=== PATIENT | female | born 1945 | race Hispanic/Latino ===

== ENCOUNTER 2018-11-18 14:06 | Inpatient (IN) | payer MEDICARE ==
[~2018-11-18] VITALS: Ht 157.5 cm; Wt 65.6 kg
--- NOTE | 2018-11-18 00:03 | NUR ---
[facility] team here to insert line Addendum: 11/19/18 at 0719 by Daija Maxwell RN 11/19/18
[~2018-11-18 14:06] MED LIST: ALENDRONATE SOD70 MG PO; GABAPENTIN300 MG PO; GENVOYA PO; HYZAAR 50-12.51 EACH PO; LASIX20 MG PO; METOPROLOL SUCC25 MG PO; NIFEDIPINE ER30 M1 PO; TOPROL XL25 MG PO
--- NOTE | 2018-11-18 15:30 | NUR ---
Daughter, Maddy, was notified of patient's arrival to the floor and PICC line placement. Patient is agreeable to PICC line placement.
[2018-11-18 15:39] VITALS: BP 125/67
[2018-11-18 15:43] VITALS: BP 144/65
[2018-11-18 17:06] LABS: BASOPHILS % 0.5 % (0.0-1.0); EOSINOPHILS # (AUTO) 0.2 (0.0-0.4); EOSINOPHILS % 5.6 % (0.0-6.0); HEMATOCRIT 35.9 % (34.2-44.1); HEMOGLOBIN 11.9 g/dL (12.0-16.0); LYMPHOCYTES # (AUTO) 1.5 (1.0-3.2); LYMPHOCYTES % 35.6 % (18.0-39.1); MEAN CORPUSCULAR HEMOGLOBIN 30.7 pg (28-32); MEAN CORPUSCULAR HGB CONC 33.1 g/dL (31-35); MEAN CORPUSCULAR VOLUME 92.5 fL (81-99); MONOCYTES # (AUTO) 0.3 (0.2-0.8); NEUTROPHILS # (AUTO) 2.1 (2.1-6.9); NEUTROPHILS % 50.3 % (38.7-80.0); PLATELET COUNT 101 x10e3/uL (140-360); RED BLOOD COUNT 3.88 x10e6/uL (3.6-5.1); RED CELL DISTRIBUTION WIDTH 13.5 % (11.7-14.4)
[2018-11-18 17:27] LABS: ALANINE AMINOTRANSFERASE 18 IU/L (0-55); ALBUMIN 3.7 g/dL (3.5-5.0); ALBUMIN/GLOBULIN RATIO 1.2 (0.8-2.0); ALKALINE PHOSPHATASE 68 IU/L (40-150); ANION GAP 7.2 mmol/L (8-16); BLOOD UREA NITROGEN 22 mg/dL (7-26); BUN/CREATININE RATIO 24 (6-25); CALCIUM 9.3 mg/dL (8.4-10.2); CARBON DIOXIDE 26 mmol/L (22-29); CHLORIDE 107 mmol/L (98-107); CREATININE, SERUM 0.91 mg/dL (0.57-1.11); EST GLOMERULAR FILTRATION RATE > 60 ML/MIN (60-); GLUCOSE 99 mg/dL (74-118); POTASSIUM 4.2 mmol/L (3.5-5.1); SODIUM 136 mmol/L (136-145)
--- NOTE | 2018-11-18 17:33 | NUR ---
Notified radiology that consent for PICC line has been signed.
[2018-11-18] MEDS ORDERED: HYDROXYZINE HCL10 MG PO (17:41)
[2018-11-18 17:45] LABS: ERYTHROCYTE SEDIMENTATION RATE 5 mm/hr (0-20)
[2018-11-18] MEDS ORDERED: GENVOYA PO (17:59)
[2018-11-18] MEDS ORDERED: HYDROCODONE/APAP 5MG-325MG TAB PO PRN (18:00)
[2018-11-18] MEDS ORDERED: ACETAMINOPHEN 325 MG TAB PO PRN (18:00)
[2018-11-18] MEDS ORDERED: TRAZODONE HCL 50 MG TAB PO PRN (18:00)
[2018-11-18] MEDS ORDERED: ONDANSETRON HCL INJ 2MG/ML 2ML 2 MG/ML VIAL IV PRN (18:00)
[2018-11-18] MEDS ORDERED: HYDROXYZINE HCL 10 MG TAB PO PRN (18:00)
[2018-11-18 18:16] VITALS: BP 144/65
--- NOTE | 2018-11-18 19:25 | NUR ---
Bedside report and walking rounds complete. Pt resting in bed and in no apparent distress. All safety measures ensured and pt call raya near. Pt encouraged to use call raya for assistance.
[2018-11-18 20:00] VITALS: BP 130/64
[2018-11-18] MEDS ORDERED: MEROPENEM 1GRAM 1 GM in SODIUM CHLORIDE 0.9% 100 ML 100 ML IV SCH (21:00)
--- NOTE | 2018-11-18 22:43 | Consultation ---
DATE OF CONSULTATION: REASON FOR CONSULTATION: 1. UTI, failed oral antibiotic. 2. Perirectal pain. 3. HIV. HISTORY OF PRESENT ILLNESS: This patient who is a 72-year-old Thai female, well known to me, who has history of HIV, but she is very compliant with her medication, she takes her medication, history of hepatitis C, which was treated, history of hemorrhoids, who had surgery for it. 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 The patient was doing well. She came into my office complaining that she has been having urgency, frequency, so we did urine cultures, we gave her Cipro, surprisingly it was sensitive to Cipro, but she did have urgency, frequency, severe back pain without any improvement, feeling feverish, so I feel maybe she has been on IV meropenem till we get further information. The patient also complained to me that she is having perirectal pain, which she had for sometime. She is also complained that she is having problem. The patient is admitted with the above complaint: 1. Urgency and frequency. 2. Perirectal pain. 3. Pain around the colostomy. PAST MEDICAL HISTORY: History of HIV and hepatitis C and as above. PAST SURGICAL HISTORY: Colectomy. ALLERGIES: NKA. SOCIAL HISTORY: There is no smoking, drug abuse, or alcohol abuse. FAMILY HISTORY: Otherwise noncontributory. REVIEW OF SYSTEMS: HEENT: There is no headache, visual changes, or hearing changes. GI: There is no nausea, no vomiting, no diarrhea. CARDIAC: There is no arrhythmia. NEURO: No seizure activity. SKIN: There is no rash. All other symptoms within normal limits except for what mentioned above. Laboratory data is still pending, but the patient is well-known to me to have history of chronic kidney disease from before, creatinine like 1.5 or something. PHYSICAL EXAMINATION: GENERAL: She is currently alert, oriented, does not seem to be in acute distress. VITAL SIGNS: Stable. Afebrile. HEENT: Normocephalic, not icteric. NECK: Supple. No JVD. No thyromegaly. CHEST: Clear bilateral. HEART: S1, S2. No S3, S4, or murmur. ABDOMEN: Soft. Bowel sounds present. No tenderness. No hepatosplenomegaly. EXTREMITIES: No edema. SKIN: No rash. IMPRESSION: 1. Urinary tract infection, failing oral antibiotic in spite of sensitivity pattern. We will recheck urine cultures. We will put her on meropenem. 2. Chronic kidney disease. Recheck CBC, chemistry panel, adjust antibiotic according to that. 3. History of HIV. Continue home medication. 4. History of hep C treatment. 5. Perirectal pain. We will consult GI. 6. Pain around the colostomy. We will consult Wound Care. We will follow up after the availability of the cultures and sensitivity. Further recommendations to follow. MD KODI Coronado/MICHEL /[id number]
--- NOTE | 2018-11-18 23:24 | Diagnostic Imaging Report ---
EXAMINATION: CHEST XRAY LINE PLACEMENT INDICATION: post PICC line insertion ^[id number] ^[id number] ^Y COMPARISON: None FINDINGS: TUBES and LINES: Right upper extremity PICC with distal tip projected on the level of the mid SVC. LUNGS: Lungs are well inflated. Lungs are clear. There is no evidence of pneumonia or pulmonary edema. PLEURA: No pleural effusion or pneumothorax. HEART AND MEDIASTINUM: The cardiomediastinal silhouette is unremarkable. BONES AND SOFT TISSUES: No acute osseous lesion. Soft tissues are unremarkable. UPPER ABDOMEN: No free air under the diaphragm. IMPRESSION: Right upper extremity PICC with distal tip projected on the level of the mid SVC. Signed by: Dr. Vlad Borges M.D. on 11/18/2018 11:21 PM
[2018-11-19] VITALS (7 sets, daily range): BP systolic 119–154; BP diastolic 59–71
--- NOTE | 2018-11-19 01:03 | History and Physical ---
CHIEF COMPLAINT: Dysuria, failed outpatient oral antibiotic therapy. HISTORY OF PRESENT ILLNESS: This is 72-year-old female with multiple comorbidities, of note history of hypotension and osteoporosis, who came in as a direct admission after failing outpatient oral antibiotic therapy for UTI. The patient has been on oral antibiotics for significant period of time and continues to complain of dysuria. At this time, the patient is being admitted for IV antibiotic therapy with Merrem. PICC line will be ordered. The patient denies any chest pain, palpitation, nausea, or vomiting. Denies any fever at home. She does complain of dysuria. The patient was evaluated at bedside, currently stable. Vital signs were stable during my evaluation. REVIEW OF SYSTEMS: Pertinent positives: Positive dysuria. Pertinent negatives: Denies any chest pain, palpitation, nausea, vomiting, diarrhea, hematuria, frequency, urgency, lightheadedness, dizziness, abdominal pain, headaches, shortness of breath, cough, congestion, fever, or any other complaints. The rest of 14-point review of systems are reviewed with the patient and are negative. ALLERGIES: NO KNOWN DRUG ALLERGIES. HOME MEDICATIONS: She takes alendronate 70 mg every the week, Genvoya, hydroxyzine 10 mg p.o. t.i.d. for itching, and metoprolol ER 25 mg daily. PAST MEDICAL HISTORY: Hypotension and osteoporosis. PAST SURGICAL HISTORY: Cholecystectomy in the past. SOCIAL HISTORY: The patient is , has 2 children. No illicit drugs, alcohol or any cigarettes. PHYSICAL EXAMINATION: VITAL SIGNS: Temperature 97.2, pulse 64, respirations 18, blood pressure 140/65, and pulse ox 99% on room air. GENERAL: No acute distress. Alert and oriented x3. Cooperative on examination. HEENT: Head is normocephalic and atraumatic. Eyes; pupils are equal, round, and reactive to light bilaterally. Extraocular movements are intact bilaterally. Throat, no evidence of erythema or exudates in the posterior pharynx. Has poor dentition. NECK: Supple. Good range of motion throughout. PULMONARY: Clear to auscultation bilaterally. No wheezing, no rales, no rhonchi, and no crackles appreciated. CARDIOVASCULAR: Positive S1 and S2. No murmurs, rubs, or gallops. ABDOMEN: Soft and nontender to palpation. Bowel sounds present. MUSCULOSKELETAL: Strength is 5/5 throughout. No evidence of any muscle deficits on examination. No weakness appreciated. NEUROLOGIC: Cranial nerves II through XII grossly intact. No evidence of any neurological deficits on exam. SKIN: Intact. Warm to touch. Good cap refill. PSYCHIATRIC: Normal affect and mood. EXTREMITIES: No edema. Good range of motion throughout. LAB FINDINGS: White count of 4.1, hemoglobin 11.9, hematocrit 35.9, and platelets 101. Chemistry; sodium 133, potassium 4.2, chloride 107, bicarb 26, anion gap is 7, BUN 20, creatinine 0.91, glucose 99, and calcium 9.3. Bilirubin 0.8, AST 24, ALT 18, alkaline phosphatase 68, total protein 6.9, and albumin 3.7. MICROBIOLOGY: None. IMAGING STUDIES: None. IMPRESSION: 1. Multidrug resistant urinary tract infection, failed outpatient oral antibiotic therapy. 2. Hypertension. 3. Osteoporosis. 4. Obesity. 5. The patient complains of epigastric abdominal pain. PLAN: At this time, start with IV antibiotics and Merrem per ID recommendations. PICC line will be ordered for an outpatient antibiotic therapy. The patient will go ahead and get GI consultation due to epigastric abdominal pain ongoing for the last several days to weeks. We are going to resume same home medications with no changes. Restart home medications. Hold Lovenox for DVT prophylaxis. Otherwise, continue same plan of care. Monitor very closely. ID and GI have been consulted. MD LUBNA Barboza/MICHEL /[id number]
[2018-11-19 02:37] LABS: BILIRUBIN,URINE NEGATIVE (NEGATIVE); CLARITY,URINE CLEAR (CLEAR); COLOR,URINE YELLOW (YELLOW); KETONES,URINE NEGATIVE (NEGATIVE); LEUKOCYTE ESTERASE ,URINE NEGATIVE (NEGATIVE); NITRITE,URINE NEGATIVE (NEGATIVE); PROTEIN,URINE DIPSTICK NEGATIVE (NEGATIVE); URINE UROBILINOGEN 0.2 mg/dL (0.2 - 1)
[2018-11-19 02:49] LABS: BACTERIA,URINE RARE /HPF; RBC,URINE 0-5 /HPF (0-5); WBC,URINE (MAN) 0-5 /HPF (0-5)
[2018-11-19 02:50] LABS: EPITHELIAL CELLS,URINE RARE /LPF
[2018-11-19] MEDS: MEROPENEM 1GM 100 ML IV SCH ×2 (05:00→16:30)
[2018-11-19] MEDS ORDERED: SODIUM CHLORIDE 0.9% 250ML 250 ML ONE (05:05)
[2018-11-19 06:03] LABS: BASOPHILS % 0.4 % (0.0-1.0); EOSINOPHILS # (AUTO) 0.3 (0.0-0.4); EOSINOPHILS % 4.6 % (0.0-6.0); HEMATOCRIT 38.2 % (34.2-44.1); HEMOGLOBIN 13.1 g/dL (12.0-16.0); LYMPHOCYTES # (AUTO) 1.8 (1.0-3.2); LYMPHOCYTES % 33.6 % (18.0-39.1); MEAN CORPUSCULAR HEMOGLOBIN 30.9 pg (28-32); MEAN CORPUSCULAR HGB CONC 34.3 g/dL (31-35); MEAN CORPUSCULAR VOLUME 90.1 fL (81-99); MONOCYTES # (AUTO) 0.5 (0.2-0.8); MONOCYTES % 8.8 % (4.4-11.3); NEUTROPHILS # (AUTO) 2.9 (2.1-6.9); NEUTROPHILS % 52.4 % (38.7-80.0); PLATELET COUNT 115 x10e3/uL (140-360); RED BLOOD COUNT 4.24 x10e6/uL (3.6-5.1); RED CELL DISTRIBUTION WIDTH 13.3 % (11.7-14.4)
[2018-11-19 06:29] LABS: ANION GAP 8.9 mmol/L (8-16); BLOOD UREA NITROGEN 22 mg/dL (7-26); BUN/CREATININE RATIO 27 (6-25); CALCIUM 9.2 mg/dL (8.4-10.2); CARBON DIOXIDE 25 mmol/L (22-29); CHLORIDE 105 mmol/L (98-107); CREATININE, SERUM 0.81 mg/dL (0.57-1.11); EST GLOMERULAR FILTRATION RATE > 60 ML/MIN (60-); GLUCOSE 91 mg/dL (74-118); POTASSIUM 3.9 mmol/L (3.5-5.1); SODIUM 135 mmol/L (136-145)
--- NOTE | 2018-11-19 08:05 | Consultation ---
DATE OF CONSULTATION: 11/18/2018 GI consultation REASON FOR CONSULT: GI consult for chronic hepatitis C. HISTORY OF PRESENTING ILLNESS: A 72-year-old very pleasant female. She speaks Georgian only. Most of my information is derived through interaction with the nurse and reviewing the chart. She got admitted with recurrent episodes of urinary tract infection. She was getting intravenous antibiotic at home. She has admitted in the hospital to get a PICC line for IV antibiotic. She is getting antibiotic therapy under supervision of Infectious Disease physician, Dr. Rosenthal. She has a documented history of hepatitis C as well as HIV. It is not clear whether the patient ever received treatment for HIV. So, she is here to get the PICC line. The patient also has a colostomy. It is not clear what is the reason for colostomy. The patient is also not able to tell me the detailed history about this. She otherwise reports no abdominal pain. Tolerating oral diet. Colostomy bag is full of semi solid brown stool. REVIEW OF SYSTEMS: As per HPI. PAST MEDICAL HISTORY: Hypertension, chronic hepatitis C, HIV, foot injury. PAST SURGICAL HISTORY: Cholecystectomy, right colostomy. FAMILY HISTORY: Noncontributory. SOCIAL HISTORY: No smoking, alcohol, or any illicit drug use. ALLERGIES: NO KNOWN DRUG ALLERGIES. HOME MEDICATIONS: Alendronate, hydroxyzine, metoprolol, Genvoya. INPATIENT MEDICATIONS: List reviewed as per MAR. She is also on intravenous meropenem. PHYSICAL EXAMINATION: VITAL SIGNS: Temperature 97.2, pulse 64, respirations 18, blood pressure 144/65, oxygen saturation 99% on 2 L of nasal cannula. GENERAL: Not in any acute distress. HEENT: Oral mucosa is moist. Anicteric sclerae. CVS: S1 and S2 regular. LUNGS: Bilaterally grossly clear. ABDOMEN: Soft, nondistended, nontender. No palpable mass or hernia, right colostomy with soft brown stool. No mass or hernia. Positive bowel sounds. LABORATORY DATA: WBC 4.10, hemoglobin 11.9, hematocrit 35.9, MCV 92.5, and platelet count 101. Sodium 136, potassium 4.2, chloride 107, bicarb 26, BUN 22, creatinine 0.91. Liver enzymes normal. No imaging studies done here. IMPRESSION: 1. Chronic hepatitis C, it is not clear whether the patient ever received treatment. 2. Thrombocytopenia, this is indicative of possible underlying portal hypertension from liver cirrhosis. 3. Right colostomy, reason unclear, detailed history is not available. PLAN: From GI standpoint, continue the present medical management for urinary tract infection. The patient is most hepatitis C treatment needs to be done as an outpatient. I will continue to follow her clinically. I thank Dr. Rosenthal for allowing me to participate in the care of this patient. Olu Bentley MD SA/MICHEL /[id number]
[2018-11-19] MEDS ORDERED: METOPROLOL SUCCINATE 25 MG TAB XL PO SCH (09:00)
[2018-11-19] MEDS: METOPROLOL SUCCINATE 50 MG TAB XL PO SCH (09:11)
[2018-11-19] MEDS: GENVOYA PO SCH (09:12)
--- NOTE | 2018-11-19 14:55 | NUR ---
WOUND CARE CONSULTATION: THIS IS A 72 YEAR OLD PATIENT ADMITTED TO [facility] FOR UTI. PATIENT HAS A HISTORY OF HIV, HEPATITIS C, AND PAST SURGICAL HISTORY OF COLECTOMY. HEAD TO TOE SKIN ASSESSMENT PERFORMED. PATIENT HAS NO OPEN WOUNDS UPON ASSESSMENT. PATIENT DOES HAVE A RLQ COLOSTOMY, APPLIANCE INTACT, FIT TO STOMA SIZE, STOMA IS PINK WITH NO IRRITATION NOTED. 150CC OF LIGHT BROWN, STOOL NOTED IN OUTPUT OF COLOSTOMY POUCH. HAND OUTS WERE GIVEN TO PATIENT AND TEACHING WAS PROVIDED REGARDING COLOSTOMY CARE, SKIN CARE, AND STOMA EXPECTATIONS AND CARE OF STOMA. PATIENT VERBALIZED THAT SHE UNDERSTANDS TEACHING AND THAT SHE DOES NOT HAVE ANY QUESTIONS REGARDING COLOSTOMY CARE AT THIS TIME. PATIENT HAS BEEN CHANGING AND EMPTYING HER COLOSTOMY FOR OVER A YEAR. SHE HAS SUPPLIES DELIVERED MONTHLY AND HAS PLENTY OF APPLIANCES FOR HER COLOSTOMY CHANGES AT HOME. LABS: WBC5.44 [id number] ALBUMIN3.7 URINE CULTURE PENDING. MEDICATIONS: MEROPENEM RECOMMENDATION: -APPLY ALTERNATING PRESSURE RELIEF MATTRESS. -APPLY BILATERAL HEEL PROTECTORS WITH PILLOW SUSPENSION. -REMIND PATIENT TO TURN EVERY 2 HOURS AND PRN. -RECONSULT WOUND CARE DEPARTMENT IF ANY FURTHER QUESTIONS OR CONCERNS ABOUT COLOSTOMY CARE. THANK YOU FOR THIS WOUND CARE CONSULT. Addendum: 11/19/18 at 1511 by Deja Hernandez RN Amended: Links added.
--- NOTE | 2018-11-19 15:46 | Progress Note ---
DATE: 11/19/2018 SUBJECTIVE: The patient is currently doing well with no complaints. She does have currently a PICC line. She is on IV Merrem. Process is for us to get her home on IV antibiotics. She otherwise have no complaints overnight. LABORATORY DATA: Lab findings show white count is 5.4, hemoglobin 13, hematocrit is 38, platelets 150. Chemistry; sodium 135, potassium 3.9, chloride 105, bicarb 25, anion gap is 8.9, BUN 22, creatinine 0.81, glucose 91, calcium 9.2. Urinalysis was negative. MICROBIOLOGY: Urine cultures pending. IMAGING STUDIES: None. PHYSICAL EXAMINATION: VITAL SIGNS: Temperature is 96.9, pulse 71, respiratory rate is 18, blood pressure 132/62, pulse ox 99% on room air. GENERAL: Not in acute distress. Alert and oriented x3. Cooperative on examination. HEENT: Head, normocephalic and atraumatic. Eyes, pupils are equal, round, and reactive to light bilaterally. Extraocular movements are intact bilaterally. Throat, no evidence of any erythema or exudates in the posterior pharynx. Has poor dentition. NECK: Supple. Good range of motion. PULMONARY: Clear to auscultation bilaterally. No wheezing, rales, or rhonchi. No crackles appreciated. CARDIOVASCULAR: Positive S1 and S2. No murmurs, rubs, or gallops appreciated. ABDOMEN: Soft, nondistended, and nontender to palpation. Bowel sounds are present. MUSCULOSKELETAL: Strength is 5/5 throughout. No evidence of any muscle deficits on examination. No weakness appreciated. NEUROLOGIC: Cranial nerves II through XII grossly intact. No evidence of any neurological deficits on exam. SKIN: Intact. Warm to touch. Good cap refill. PSYCHIATRIC: Normal affect and mood. EXTREMITIES: No edema. Good range of motion throughout. IMPRESSION: 1. Multidrug-resistant urinary tract infection, failed outpatient antibiotic therapy, now on IV Merrem. 2. Hypertension. 3. Osteoporosis. 4. Obesity. 5. Epigastric abdominal pain. PLAN: Continue with IV Merrem. PICC line has been placed. Arrange IV antibiotics as an outpatient. Blood pressure is stable. Continue same home medications. GI evaluated the patient. No further workup needed. Just medical management at this time. She does have a PICC line . Continue with same plan of care. MD LUBNA Barboza/MICHEL /[id number]
[2018-11-19] MEDS: ENOXAPARIN SOD INJ 40 MG/0.4 ML SYR SC SCH (16:30)
--- NOTE | 2018-11-19 19:06 | NUR ---
received patient aaox3, resting in bed. no needs voiced. bed locked and in lowest position, call light within easy reach. will continue to monitor patient.
--- NOTE | 2018-11-19 22:53 | Progress Note ---
DATE: 11/19/2018 GI Progress Report. SUBJECTIVE: The patient reports no abdominal pain, tolerating oral diet. She got a PICC line placed today. REVIEW OF SYSTEMS: GENERAL: No fever or chills. CVS: No chest pain or palpitation. RESPIRATORY: No cough or expectoration. MEDICATIONS: Reviewed as per AUG. The patient is getting intravenous meropenem along with other medications. PHYSICAL EXAMINATION: VITAL SIGNS: Temperature 96.8, pulse 66, respirations 20, blood pressure 150/65, oxygen saturation 99% on room air. GENERAL: Not in any acute distress. HEENT: Oral mucosa is moist. Anicteric sclerae. CVS: S1, S2. Regular. LUNGS: Bilaterally grossly clear. ABDOMEN: Soft, nondistended, nontender. No palpable mass or hernia. Right colostomy bag with soft brown stool. Bowel sounds present. EXTREMITIES: Warm. No leg edema. PICC line in the right upper arm. LABORATORY DATA: WBC 5.44, hemoglobin 13.1, hematocrit 38.2, platelet count 115. Sodium 135, potassium 3.9, chloride 105, bicarb 25, BUN 22, creatinine 0.81, glucose 91. Chest x-ray showed right upper extremity PICC with distal tip projected on the level of mid SVC. IMPRESSION: 1. Chronic hepatitis C. 2. Thrombocytopenia, indicative of underlying portal hypertension from cirrhosis. PLAN: Continue present medical management for urinary tract infection. I have given the patient my business card. She has been instructed to follow up in my office within one week for the treatment of hepatitis and outpatient management of any underlying liver cirrhosis. Olu Bentley MD SA/MICHEL /[id number] MTDD
[2018-11-20] VITALS (9 sets, daily range): BP systolic 118–142; BP diastolic 63–79
[2018-11-20] MEDS: MEROPENEM 1GM 100 ML IV SCH ×2 (04:55→17:07)
--- NOTE | 2018-11-20 07:00 | NUR ---
BEDSIDE SHIFT REPORT RECEIVED FROM NAILER OPERATOR RN. PT DENIES NEEDS AT THIS TIME.
[2018-11-20] MEDS: METOPROLOL SUCCINATE 50 MG TAB XL PO SCH (08:52)
[2018-11-20] MEDS: GENVOYA PO SCH (08:56)
--- NOTE | 2018-11-20 10:35 | NUR ---
EDUCATED ABOUT IMM, SIGNED, FILED IN CHART, WITH COPY LEFT WITH FAMILY AT BEDSIDE.
--- NOTE | 2018-11-20 12:22 | Progress Note ---
DATE: 11/20/2018 GI Progress Report SUBJECTIVE: The patient reports no abdominal pain. Tolerating oral feeds. Bilious liquidy stool in the colostomy bag. She got PICC line in the right arm yesterday. REVIEW OF SYSTEMS: GENERAL: No fever or chills. CVS: No chest pain or palpitation. RESPIRATORY: No cough or expectoration. MEDICATIONS: Reviewed as per MAR, she is getting meropenem along with other medication. PHYSICAL EXAMINATION: VITAL SIGNS: Temperature 97.2, pulse 68, respirations 20, blood pressure 129/67, and oxygen saturation 98% on room air. GENERAL: Not in any acute distress. HEENT: Oral mucosa is moist. Anicteric sclerae. ABDOMEN: Soft, nondistended, and nontender. No palpable mass or hernia. Positive bowel sounds. Colostomy bag with a bilious greenish fecal fluid. LABORATORY DATA: No lab drawn today. Lab drawn yesterday showed normal electrolytes. Liver enzymes tested on 11/18/2018 was normal. On 11/19/2018, hemoglobin 13.1, hematocrit 38.2, normal WBC, and platelet count is 115. IMPRESSION: 1. Chronic hepatitis C, needs confirmation for active infection. 2. Thrombocytopenia, indicative of probable underlying portal hypertension from liver cirrhosis. PLAN: Continue present medical management for urinary tract infection. Management of hepatitis C, liver cirrhosis as an outpatient. The patient has my business card. She will call my office to set up an appointment to see me within 1 to 2 weeks after discharge. Olu Bentley MD SA/MICHEL /[id number]
--- NOTE | 2018-11-20 16:55 | NUR ---
CALLED DR IVAN OFFICE REGARDING HOME HEALTH IV ANTIBIOTICS PER CASE MANAGEMENT.
[2018-11-20] MEDS ORDERED: ONDANSETRON HCL 4 MG ORAL DISINTEGRATING TAB PO PRN (17:00)
[2018-11-20] MEDS: ENOXAPARIN SOD INJ 40 MG/0.4 ML SYR SC SCH (17:07)
--- NOTE | 2018-11-20 17:48 | Progress Note ---
DATE: 11/20/2018 Medicine Progress Note SUBJECTIVE: The patient is doing well today with no other complaints. Still pending IV antibiotics for home. OBJECTIVE: VITAL SIGNS: Temperature is 98.5, pulse 63, respiratory rate 20, blood pressure 142/76, and pulse ox 98% on room air. GENERAL: Not in acute distress. Alert and oriented x3. Cooperative on examination. HEENT: Head is normocephalic and atraumatic. Eyes; pupils are equal, round, and reactive to light bilaterally. Extraocular movements are intact bilaterally. NECK: Supple. Good range of motion. THROAT: No evidence of erythema or exudates in the posterior pharynx. Has poor dentition. PULMONARY: Clear to auscultation bilaterally. No wheezing, rales, or rhonchi. No crackles appreciated. CARDIOVASCULAR: Positive S1, S2. No murmurs, rubs, or gallops appreciated. ABDOMEN: Soft, nondistended, and nontender to palpation. Bowel sounds present. MUSCULOSKELETAL: Strength is 5/5 throughout. No evidence any muscle deficits on examination. NEUROLOGIC: Cranial nerves II through XII grossly intact. No evidence of any neurological deficits on exam. SKIN: Intact. Warm to touch. Good cap refill. PSYCHIATRIC: Normal affect and mood. EXTREMITIES: No edema. Good range of motion throughout. LABORATORY DATA: White count of 5.5, hemoglobin 13, hematocrit 38, and platelets of 115. Chemistry, sodium 135, potassium 3.9, chloride 105, bicarb 25, anion gap of 8.9, BUN 22, and creatinine 0.81. Calcium 9.2. Troponins are all negative. IMPRESSION: 1. Multidrug resistant urinary tract infection, failed outpatient antibiotic therapy on IV Merrem. 2. Hypertension. 3. Osteoporosis. 4. Diabetes. 5. Epigastric abdominal pain, resolved. PLAN: Continue with IV Merrem. PICC line has been placed. Arranging for IV antibiotic outpatient. Pending home health and home IV antibiotics arrangement. Otherwise, continue same plan of care. Discussed plan of care with the son at bedside. MD LUBNA Barboza/MODL /[id number]
--- NOTE | 2018-11-20 19:00 | NUR ---
BEDSIDE SHIFT REPORT GIVEN TO THE MGMT SPECIALIST RN. PT DENIED FURTHER NEEDS.
--- NOTE | 2018-11-20 19:09 | NUR ---
received patient aaox3, resting in bed. stable condition, no s/s of distress observed, no needs voiced at this time. bed locked and in lowest position, call light within easy reach. instructed to call for assistance as needed, patient verbalized understanding. will continue to monitor patient.
[2018-11-21] MEDS: MEROPENEM 1GM 100 ML IV SCH ×2 (05:10→16:37)
[2018-11-21 05:57] VITALS: BP 134/71
--- NOTE | 2018-11-21 07:00 | NUR ---
BEDSIDE SHIFT RECEIVED FROM PRIMARY SCHOOL TEACHER LIBRARIAN RN. PT DENIES NEEDS AT THIS TIME.
[2018-11-21 08:55] VITALS: BP 153/70
[2018-11-21] MEDS: GENVOYA PO SCH (09:00)
[2018-11-21] MEDS: METOPROLOL SUCCINATE 50 MG TAB XL PO SCH (09:05)
[2018-11-21 09:15] VITALS: BP 153/70
[2018-11-21 11:48] VITALS: BP 124/61
[2018-11-21] MEDS: ENOXAPARIN SOD INJ 40 MG/0.4 ML SYR SC SCH (16:37)
[2018-11-21] MEDS ORDERED: KEFLEX500 MG PO (16:49)
[2018-11-21 17:30] VITALS: BP 138/63
--- NOTE | 2018-11-21 18:00 | NUR ---
PICC LINE REMOVED PER THE ORDER FROM DR. SHIN. NO SIGNS OF BLEEDING NOTED. PT TOLERATED WELL. PT DENIED FURTHER NEEDS.
--- NOTE | 2018-11-21 19:00 | NUR ---
PT DISCHARGED SAFELY HOME WITH FAMILY. PT DENIED FURTHER NEEDS.
--- NOTE | 2018-11-22 06:26 | Discharge Summary ---
FINAL DISCHARGE DIAGNOSES: 1. Urinary tract infection with underlying dysuria. 2. Abdominal pain, resolved. 3. Hypertension. 4. Osteoporosis. 5. Type 2 diabetes. CONSULTANTS: ID and GI. PHYSICAL EXAMINATION: VITAL SIGNS: Temperature is 97.4, pulse 64, respirations 17, blood pressure 124/61, and pulse ox 98% on room air. LAB FINDINGS: Show white count 5.4, hemoglobin 13, hematocrit of 38, platelets of 115. Chemistry, sodium 135, potassium 3.9, chloride 105, bicarb 25, anion gap of 8.9, BUN 22, creatinine 0.8, and calcium is 9.2. LFTs were normal. Troponins were negative. Total protein 6.8, albumin 3.7. Urinalysis negative. Microbiology, urine cultures negative. IMAGING STUDIES: None. HOSPITAL COURSE: A 72-year-old female with known HIV, had a positive UTI in the clinic, in which she failed outpatient oral antibiotic therapy. The patient was admitted. ID was consulted. We recommended initially IV PICC line, which was placed and IV Merrem, antibiotics. Initially, the patient was going to be discharged with IV Merrem, antibiotics as an outpatient. After further discussion with Infectious Disease, he recommended pulling the PICC line now, the patient now is currently asymptomatic and discharged on oral Keflex 500 mg p.o. Friday, Friday, Friday, and follow up next week in his office for further management and care. The patient is afebrile. White count is normal. In relation to her abdominal pain, GI was consulted. No further workup was needed and advised her to follow up as an outpatient. On discharge, the patient was cleared for discharge by all consultants. On the day of discharge, vital signs stable, labs being stable. The patient was seen, evaluated, examined thoroughly on the day of discharge. No other complaints. The patient verbalized understanding and agreed to plan of care. Follow up accordingly as an outpatient with the primary care physician in one week and Infectious Disease next week, and GI in 1-2 weeks' time. MEDICATIONS: See med reconciliation form. DISPOSITION: Home. CONDITION: Stable. DIET: Heart healthy. In the event of any worsening symptoms, the patient was advised to come back to the ED for further evaluation. Discharge summary took greater than 35 minutes. MD LUBNA Barboza/MICHEL /[id number]
== END 2018-11-21 19:23 | disposition home or self-care (01) | DRG 690 ==
LOC: MED/SURG2 15:01
PROVIDERS: ADMIT Internal Medicine; ATTEND Internal Medicine
PROC: 02HV33Z Insertion of Infusion Device into Superior Vena Cava, Percutaneous Approach (ICD-10-PCS; principal; 2018-11-18)
DX: N39.0 Urinary tract infection, site not specified (principal); B20 Human immunodeficiency virus [HIV] disease; K76.6 Portal hypertension; M81.0 Age-related osteoporosis without current pathological fracture; E11.9 Type 2 diabetes mellitus without complications; I10 Essential (primary) hypertension; E66.9 Obesity, unspecified; Z68.26 Body mass index [BMI] 26.0-26.9, adult; D69.59 Other secondary thrombocytopenia; K74.60 Unspecified cirrhosis of liver; Z16.24 Resistance to multiple antibiotics; B18.2 Chronic viral hepatitis C; R10.13 Epigastric pain; R35.0 Frequency of micturition
CPT/HCPCS: 36415; 36569; 71045; 80048; 80053; 81001; 84484; 85025; 85651; 86141; 87086; J1650; J3410; J7050

== ENCOUNTER 2019-02-01 17:48 | Inpatient (IN) | payer MEDICARE ==
[~2019-02-01] VITALS: Ht 157.5 cm; Wt 63.5 kg
[~2019-02-01 17:48] MED LIST changes: +HYDROXYZINE HCL10 MG PO; +KEFLEX500 MG PO
[2019-02-01] MEDS ORDERED: ONDANSETRON HCL INJ 2MG/ML 2ML 2 MG/ML VIAL IV STA (18:08)
[2019-02-01] MEDS ORDERED: SODIUM CHLORIDE 0.9% 1000ML 1,000 ML IV STA (18:08)
[2019-02-01] MEDS ORDERED: MORPHINE SULFATE 2 MG/ML SYR 1ML IV STA (18:08)
[2019-02-01 18:24] LABS: BILIRUBIN,URINE NEGATIVE (NEGATIVE); CLARITY,URINE SL CLOUDY (CLEAR); COLOR,URINE YELLOW (YELLOW); KETONES,URINE NEGATIVE (NEGATIVE); LEUKOCYTE ESTERASE ,URINE TRACE (NEGATIVE); NITRITE,URINE NEGATIVE (NEGATIVE); PROTEIN,URINE DIPSTICK NEGATIVE (NEGATIVE); URINE UROBILINOGEN 0.2 mg/dL (0.2 - 1)
[2019-02-01 18:36] LABS: BACTERIA,URINE FEW /HPF; EPITHELIAL CELLS,URINE MODERATE /LPF; RBC,URINE 0-5 /HPF (0-5)
[2019-02-01 18:52] LABS: BASOPHILS % 0.4 % (0.0-1.0); EOSINOPHILS # (AUTO) 0.1 (0.0-0.4); EOSINOPHILS % 2.9 % (0.0-6.0); HEMATOCRIT 38.3 % (34.2-44.1); HEMOGLOBIN 13.2 g/dL (12.0-16.0); LYMPHOCYTES # (AUTO) 1.5 (1.0-3.2); LYMPHOCYTES % 33.3 % (18.0-39.1); MEAN CORPUSCULAR HEMOGLOBIN 30.6 pg (28-32); MEAN CORPUSCULAR HGB CONC 34.5 g/dL (31-35); MEAN CORPUSCULAR VOLUME 88.9 fL (81-99); MONOCYTES # (AUTO) 0.4 (0.2-0.8); MONOCYTES % 8.1 % (4.4-11.3); NEUTROPHILS # (AUTO) 2.5 (2.1-6.9); NEUTROPHILS % 55.1 % (38.7-80.0); PLATELET COUNT 101 x10e3/uL (140-360); RED BLOOD COUNT 4.31 x10e6/uL (3.6-5.1); RED CELL DISTRIBUTION WIDTH 13.4 % (11.7-14.4)
[2019-02-01 19:12] LABS: ALBUMIN 4.2 g/dL (3.5-5.0); ALBUMIN/GLOBULIN RATIO 1.3 (0.8-2.0); ANION GAP 16.1 mmol/L (8-16); CALCIUM 9.7 mg/dL (8.4-10.2); CREATININE, SERUM 1.1 mg/dL (0.57-1.11); POTASSIUM 4.1 mmol/L (3.5-5.1)
--- NOTE | 2019-02-01 21:05 | Diagnostic Imaging Report ---
ADDENDUM #1 Dr. Up was informed of the preliminary findings of small bowel obstruction at approximately 2050 hours. Signed by: Dr. Georgie Bello MD on 02/01/2019 9:[address] Abdomen And Pelvis with Intravenous Contrast INDICATION: ^right abd pain/ with PO contrast as well TECHNIQUE: Thin collimation axial images obtained from the diaphragm to the level of the pubic symphysis following the uneventful administration of 100 cc of low osmolar, nonionic intravenous contrast. Dose reduction techniques used: Automated exposure control, adjustment of the mAs and/or kVp according to patient size, standardized low-dose protocol, and/or iterative reconstruction technique. RADIATION DOSE: Total DLP: 405.39 mGy*cm Estimated effective dose: (DLP x 0.015 x size factor) mSv CTDIvol has been reviewed. It is below the limits set by the Radiation Protocol Committee (RPC). COMPARISON: CT abdomen/pelvis 11/15/2017. ABDOMEN FINDINGS: Lung Bases: Bibasilar atelectasis. The heart is mildly enlarged. No pericardial effusion. Trace pleural effusion. Liver: Steatosis. Low attenuating lesion in the left lobe measures 10 mm and is stable suggestive of a cyst. Gallbladder: Absent. Biliary tree: Mild intrahepatic and extra hepatic biliary ductal dilatation. The common bile duct measures 12 mm in diameter. There is a large periampullary duodenal diverticulum measuring 3 cm. No evidence of choledocholithiasis. Pancreas: Mild fatty atrophy. No mass or ductal dilatation. Spleen: Normal in size. No evidence of mass.. Adrenal Glands: No evidence for mass. Kidneys: Right: Cortical scarring. No soft tissue mass. No hydronephrosis. Left: Cortical scarring. No soft tissue mass. No hydronephrosis. Lymph Nodes: No enlarged abdominal or retroperitoneal lymph nodes.. Aorta: Normal in diameter with scattered calcifications PELVIS FINDINGS: Bowel: Stomach: Contains enteric contrast and appears normal. Small Bowel: Multiple dilated small bowel loops in the right hemiabdomen. Intraperitoneal small bowel loops measure up to 3 cm and contains fluid and air. There are dilated small bowel loops in a parastomal hernia that measure up to 3.5 cm and contains fluid. There is normal mural enhancement. Distal to this hernia, small bowel loops are collapsed. Large Bowel: A subtotal colectomy has been performed. There is a right lower quadrant ostomy containing small bowel as described above. There is no fluid in the hernia sac. Bladder: Normal. The uterus is atrophic. No adnexal mass. Peritoneum/retroperitoneal: No free fluid or fluid collection. No free air. Soft tissues: Midline ventral abdominal wall hernia contains multiple small bowel loops and fat. The small bowel loops are distended with air measuring up to 2.4 cm. There is no evidence of fluid. No transition point is identified in this region. The hernia aperture is 6.2 cm. Bones: Mild height loss of the T12 vertebral body is stable. Remainder of the vertebral body heights are symmetric. IMPRESSION: 1. Status post subtotal colectomy. There is a high-grade partial small bowel obstruction involving the loops in the parastomal hernia. No evidence of bowel perforation. 2. Fat and small bowel containing umbilical hernia is new with distended small bowel loops that do not appear obstructed. 3. Status post cholecystectomy. Diffuse biliary ductal dilatation may be secondary to reservoir effect as well as the presence of a large periampullary duodenal diverticulum. Signed by: Dr. Georgie Bello MD on 02/01/2019 9:01 PM
--- NOTE | 2019-02-01 21:15 | NUR ---
PT HAD EPISODE OF EMESIS, APPROX 200 CC NOTED; INFORMED DR. MARRERO.
--- NOTE | 2019-02-01 21:38 | NUR ---
PT HAD ANOTHER ROUND OF EMESIS, APPROX 400 CC NOTED, INFORMED DR. MARRERO; REQUESTING NGT INSERTION.
[2019-02-01] MEDS ORDERED: BENZOCAINE/TETRACAINE/BUTAMBEN AERO SPRAY 56 GM CAN TOP ONE (22:00)
--- NOTE | 2019-02-01 22:10 | NUR ---
PT WENT INTO CARDIAC ARRYTHMIA, INTERMITTENT A FIB IN THE 90'S. OBTAINED STAT EKG AND INFORMED DR. MARRERO, CARDIO CONSULT OBTAINED TO DR. MICHAEL AND ORDERS FOR CARDIAC MARKERS, ECHO, AND TELE PLACED FOR PT.
[2019-02-01] MEDS ORDERED: IOPAMIDOL 370 MG/ML 200 ML INFUS..BTL INJ ONE (22:13)
[2019-02-01] MEDS ORDERED: SODIUM CHLORIDE 0.9% 50ML 50 ML ONE (22:13)
[2019-02-01] MEDS ORDERED: ASPIRIN 81 MG CHEW TAB PO ONE ×2 (22:30)
--- NOTE | 2019-02-01 23:00 | NUR ---
REPORT GIVEN TO RUFUS RAINEY.
[2019-02-01 23:49] LABS: CREATINE KINASE MB 3.6 ng/mL (0-5.0)
[2019-02-02] VITALS (17 sets, daily range): BP systolic 108–139; BP diastolic 46–83
--- NOTE | 2019-02-02 01:10 | NUR ---
patient came from ER alert oriented, son on bed side. she has colostomy bag, per son its been a year she has it. NGT is intact, was inserted in ER.patient complained of pain to the stomach, stated pain level 7, also complained of nausea. no skin breakdown noted,
[2019-02-02] MEDS: ONDANSETRON HCL INJ 2MG/ML 2ML 2 MG/ML VIAL IV PRN ×2 (01:20→21:53)
[2019-02-02] MEDS: MORPHINE SULFATE INJ 4 MG/ML INJ 1ML IV PRN ×4 (01:34→21:53)
[2019-02-02] MEDS: SODIUM CHLORIDE 0.9% 1000ML 1,000 ML IV SCH ×3 (01:38→16:07)
--- NOTE | 2019-02-02 02:43 | NUR ---
patient is asleep morphine given, her hall monitor showing sinus rhythm at 72 heart rate. will continue to monitor.
[2019-02-02 05:11] LABS: BASOPHILS % 0.1 % (0.0-1.0); EOSINOPHILS % 0.1 % (0.0-6.0); HEMOGLOBIN 13.2 g/dL (12.0-16.0); LYMPHOCYTES % 12.9 % (18.0-39.1); MEAN CORPUSCULAR HEMOGLOBIN 30.3 pg (28-32); MEAN CORPUSCULAR HGB CONC 33.8 g/dL (31-35); MEAN CORPUSCULAR VOLUME 89.4 fL (81-99); MONOCYTES # (AUTO) 0.3 (0.2-0.8); MONOCYTES % 3.8 % (4.4-11.3); NEUTROPHILS # (AUTO) 6.1 (2.1-6.9); NEUTROPHILS % 82.8 % (38.7-80.0); PLATELET COUNT 123 x10e3/uL (140-360); RED BLOOD COUNT 4.36 x10e6/uL (3.6-5.1); RED CELL DISTRIBUTION WIDTH 13.4 % (11.7-14.4)
[2019-02-02 05:40] LABS: ALANINE AMINOTRANSFERASE 19 IU/L (0-55); ALBUMIN 3.8 g/dL (3.5-5.0); ALBUMIN/GLOBULIN RATIO 1.2 (0.8-2.0); ALKALINE PHOSPHATASE 58 IU/L (40-150); BLOOD UREA NITROGEN 16 mg/dL (7-26); BUN/CREATININE RATIO 19 (6-25); CARBON DIOXIDE 27 mmol/L (22-29); CHLORIDE 105 mmol/L (98-107); CREATININE, SERUM 0.86 mg/dL (0.57-1.11); EST GLOMERULAR FILTRATION RATE > 60 ML/MIN (60-); GLUCOSE 137 mg/dL (74-118); SODIUM 139 mmol/L (136-145)
[2019-02-02 06:05] LABS: CREATINE KINASE MB 2.9 ng/mL (0-5.0)
[2019-02-02] MEDS: GENVOYA PO SCH (10:00)
--- NOTE | 2019-02-02 11:30 | NUR ---
pt transferred by nurses x 2 to OR via bed in stable condition.
[2019-02-02] MEDS ORDERED: BACITRACIN 50,000 UNIT VIAL ONE (11:55)
[2019-02-02] MEDS ORDERED: BUPIVACAINE 0.5%/EPI 30 ML SDV INJ ONE (11:55)
[2019-02-02] MEDS ORDERED: CEFOXITIN 2GM/ D5W 50ML 50 ML IV ONE (12:04)
--- NOTE | 2019-02-02 15:57 | NUR ---
pt may have Ice chips now and start clear liquid diet in a.m.
[2019-02-02 16:04] LABS: CREATINE KINASE MB 4.5 ng/mL (0-5.0)
--- NOTE | 2019-02-02 16:09 | Consultation ---
DATE OF CONSULTATION: Cardiac Consultation HISTORY OF PRESENT ILLNESS: A 73-year-old lady, who is known with hypertension, HIV, hepatitis C, admission last is in November with acute abdomen. The patient had partial colectomy and ileostomy bag implantation. Cardiac weiner, there is history of paroxysmal atrial fibrillation in the past during this acute illness. Since that time, the patient was doing well. However, the patient continued to have infection. She was at this institution on the November 21, 2018, when she come with abdominal pain and urinary tract infection. The patient treated. She felt better. She was dismissed home on medication. The patient was home, for the last 2 days, she is having abdominal pain. There were no output via her ileostomy tube. She was having quite a lot of nausea and vomiting. In fact, the patient vomited quite a lot. She came to this emergency room with abdominal distention, abdominal pain, nausea, and vomiting. Workup including CT abdomen showed partial small bowel obstruction. There is dilatation of the common bile duct with evidence of prior cholecystectomy. There is diverticulum of the small duodenum. The patient was went to atrial fibrillation. She is considered to have surgery. Cardiac consultation is obtained. The patient converted back to normal sinus rhythm by herself. She is still having abdominal distention with abdominal pain. Her NG is to suction. PAST MEDICAL HISTORY: 1. Hypertension. 2. Hepatitis C. 3. HIV. 4. History of left foot injury. 5. Cholecystectomy. 6. Partial colectomy and ileostomy tube last year. 7. Admission with septic shock last year. 8. Repeated urinary tract infection with recently in November. SOCIAL HISTORY: She is . She is nonsmoker and non-alcohol drinker. FAMILY HISTORY: There is no family history of premature coronary artery disease. ALLERGIES: SHRIMP AND PORK. HOME MEDICATIONS: Include gabapentin 300 mg twice a day, Hyzaar 50/12.5 one tablet a day, and Toprol-XL 50 mg a day. She was recently on antibiotics. REVIEW OF SYSTEMS: GENERAL: Failure to thrive, abdominal pain, and chills. HEENT: Headaches. PULMONARY: Shortness of breath on exertion. No pleuritic chest pain. CARDIAC: No angina. Prior history of atrial fibrillation in November 2017 and again yesterday. GI: Abdominal pain, nausea, vomiting, and abdominal distention. : Repeated urine tract infection. MUSCULOSKELETAL: Legs pain and back pain. NEUROLOGICAL: Tingling and numbness of the lower extremities. No seizure, TIA, or stroke. ENDOCRINE: There is no history of diabetes. ID: History of hepatitis C and HIV. Remainder of review of systems are otherwise as mentioned. PHYSICAL EXAMINATION: VITAL SIGNS: Height of 5 feet 2 inches, weight of 144 pounds. The patient looks ill. Blood pressure is 100/60, heart rate currently 60 and regular of normal sinus rhythm, respiratory rate of 18, and temperature of 97.6 Fahrenheit. HEENT: Remarkable for NG tube to suction. NECK: No elevation of jugular venous pulsation. CHEST: Bilateral crackles in bases with decreased lung expansion. HEART: Currently, the rate is regular. Normal first and second heart sound. PMI 5th left intercostal space. Soft ejection systolic murmur. ABDOMEN: Distended. Ileostomy bag in place. Bowel sounds are absent. EXTREMITIES: No peripheral edema. NEUROLOGIC: Awake, alert, and oriented. Able to move her extremities. LABORATORY DATA: Sodium of 139, potassium of 4, BUN of 16, creatinine of 0.86, and bicarb of 27. White blood cell count of 7.3, hemoglobin of 13.2, hematocrit 39%, and platelet count of 123,000. EKG on admission showing atrial fibrillation, low voltage. Nonspecific ST changes. Currently, the patient in sinus and sinus rhythm in the 60s. CT abdomen results as per chart. IMPRESSION AND PLAN: 1. Small bowel obstruction in a patient with prior colectomy and ileostomy tube. 2. Paroxysmal atrial fibrillation, not unusual with this acute presentation. 3. Hypertension. 4. Hepatitis C. 5. Human immunodeficiency virus. Cardiac weiner, recommendation will be observe in volume status, correction of electrolytes, and continuation of beta-susan. The patient is considered for surgery. She is cleared for that since surgery is needed. We will observe the patient's progression with you and would like to thank you for your kind referral. MD NUNU Kowalski/MICHEL /[id number]
--- NOTE | 2019-02-02 16:25 | Consultation ---
DATE OF CONSULTATION: 02/02/2019 CHIEF COMPLAINT: Abdominal pain and vomiting. HISTORY OF PRESENT ILLNESS: This patient is a 73-year-old female with one-day history of abdominal pain and vomiting without hematemesis. The patient give a history of prior total colectomy for Clostridium difficile colitis. The patient had been doing well until recently. The patient denies fever or chills. PAST MEDICAL HISTORY: Positive for coronary artery disease, HIV status. PAST SURGICAL HISTORY: Positive for subtotal colectomy with ileostomy. ALLERGIES: SHE HAS ALLERGIC REACTION TO NO DRUGS. SOCIAL HABITS: No smoking or alcohol abuse. REVIEW OF SYSTEMS: No chest pain or shortness of breath. PHYSICAL EXAMINATION: VITAL SIGNS: Stable, afebrile. GENERAL: She is awake, alert, in mild to moderate discomfort. HEENT: Sclerae anicteric. NECK: Supple. LUNGS: Clear. HEART: Regular rate and rhythm. ABDOMEN: Soft. There is tenderness in the superior aspect of the ileostomy site with a reducible umbilical hernia. EXTREMITY: With mild ankle edema. LABORATORY DATA: The patient's white cell count 7.3, hemoglobin of 13, and creatinine of 0.8. CT scan of the abdomen show partial small-bowel obstruction involving parastomal hernia. ASSESSMENT: Incarcerated parastomal hernia and umbilical hernia. Planned repair of parastomal and umbilical hernia under anesthesia. Attendant risks discussed. Valerio Hoover MD DNMariza/MODL /[id number]
[2019-02-02] MEDS: CEFOXITIN 1GM/ D5W 50ML 50 ML IV SCH (17:22)
[2019-02-02] MEDS ORDERED: FENTANYL CITRATE/PF 100MCG/2 ML INJ ONE (18:32)
--- NOTE | 2019-02-02 18:51 | History and Physical ---
PRIMARY CARE PHYSICIAN: Dr. Claude Hay. CHIEF COMPLAINT: Abdominal pain, nausea, and vomiting. HISTORY OF PRESENT ILLNESS: This is a 73-year-old female with past medical history of hypertension, HIV, coronary artery disease, and hepatitic C presented to the ER with abdominal pain, nausea, and vomiting. She had recent partial colectomy with ileostomy bag in place. She reports having pain in the right above ileostomy and radiating to her back. She denies any fever, chills, chest pain, shortness of breath, diarrhea, or palpitations. ALLERGIES: NO KNOWN DRUG ALLERGIES. BUT, SHE IS ALLERGIC TO SHRIMP AND PORK CONTAINING PRODUCTS. PAST MEDICAL HISTORY: Hypertension, CAD, HIV, and hepatitis C. PAST SURGICAL HISTORY: Colectomy with ileostomy, cholecystectomy and ovary and cyst removal. FAMILY MEDICAL HISTORY: Reports mother had heart disease. Father is unknown. SOCIAL HISTORY: She denies any tobacco, alcohol, or illicit drug use. REVIEW OF SYSTEMS: GENERAL: No distress. HEENT: No sores in the mouth. LUNGS: No shortness of breath. CARDIOVASCULAR: No chest pain or palpitations. ABDOMEN: Abdominal pain with nausea and vomiting. PHYSICAL EXAMINATION: VITAL SIGNS: Temperature 98.2, pulse 55, blood pressure 130/63, respirations 14, and SPO2 of 99. GENERAL: Alert, awake, and oriented. Appears to be in no distress. HEENT: NG tube in place. Moist mucous membranes. LUNGS: Clear to auscultations. CARDIOVASCULAR: Normal sinus rhythm. Regular rate and rhythm. GASTROINTESTINAL: Ileostomy noted. Abdominal pain. Abdomen is soft. Nondistended. LABORATORY DATA: Please see lab results. IMAGING: CT of abdomen and pelvis showed high grade partial small bowel obstruction. IMPRESSION: 1. Small bowel obstruction. 2. Atrial fibrillation, new onset. 3. Hypertension and history of coronary artery disease. 4. History of human immunodeficiency virus. 5. Hepatitis C. PLAN: NG tube has been provided and noted that she was having atrial fibrillation. Cardiology was consulted for evaluation. Currently, she is in normal sinus rhythm. Surgical team was consulted, Dr. Hoover for small bowel obstruction. Planned surgery today. We will keep the patient n.p.o. with NG tube to suction. We will manage pain. We will continue with supportive care with pain management, IV fluids, and Zofran for nausea and vomiting. Dictated by Constanza Heard, ANP MD ARTURO Alexander /[id number]
--- NOTE | 2019-02-02 18:51 | Operative Report ---
DATE OF PROCEDURE: 02/02/2019 SURGEON: Valerio Hoover MD PREOPERATIVE DIAGNOSIS: Incarcerated parastomal hernia and umbilical incisional hernia. POSTOPERATIVE DIAGNOSIS: Incarcerated parastomal hernia and umbilical incisional hernia. OPERATIVE PROCEDURE: Repair of parastomal incarcerated hernia and incisional hernia. ANESTHESIA: General. INDICATIONS: A 73-year-old female with history of one day of peristomal abdominal pain and vomiting with CT scan showing incarcerated high-grade obstruction of bowel in the peristomal hernia. She also has an incisional hernia at the umbilical area from prior surgery. The patient consented for repair. Attendant risks discussed. DESCRIPTION OF PROCEDURE: She was brought to the OR intubated. The abdomen was prepped and draped in sterile fashion. Using an Ioban to cover the ostomy site and abdominal wall. A midline incision was made through the previous incision extending through the linea alba entering the peritoneal cavity. Adhesions taken down with Metzenbaum scissors. We then approached the right lower quadrant ileostomy site. The incarcerated bowel was reduced from the parastomal hernia, leaving a defect approximately 3 to 4 cm in the superior lateral aspect of the right lower quadrant of the ileostomy site. The loop of ileum proximal to the ileostomy is anchored to the inner lining of the abdominal wall with interrupted 3-0 Vicryl to prevent recurrence. The hernia defect superolateral to the stoma is closed with interrupted 0 Prolene sutures, not around the ileum without undue tension or tightness. Digital exploration after repair showing patency of the ileostomy. At this point, the adhesions to the abdominal wall as well as interloop adhesions are lysed with scissors. Hemostasis achieved. We then closed the major defect in the midline at the umbilical area with an interrupted horizontal mattress stitches of 0 Prolene suture, taking a big bag into the muscular and fascial tissue in a vertical fashion. Subcutaneous tissue was approximated with 3-0 Vicryl. Skin then closed with miki. The patient was extubated and transferred to recovery room. ESTIMATED BLOOD LOSS: 10 mL. Valerio Hoover MD DNL/MODL /[id number]
[2019-02-02] MEDS ORDERED: ROCURONIUM BROMIDE 10 MG/ML 5ML VIAL ONE (18:59)
[2019-02-02] MEDS ORDERED: PROPOFOL IV EMULSION 10 MG/ML 20 ML VIAL ONE (18:59)
[2019-02-02] MEDS ORDERED: LIDOCAINE HCL 2% LOCAL INJ 5 ML SDV VIAL INJ ONE (18:59)
[2019-02-02] MEDS ORDERED: SEVOFLURANE INHAL SOLN 250 ML PEN BTL ONE (18:59)
[2019-02-02] MEDS ORDERED: PHENYLEPHRINE HCL 1% 10 MG/ML VIAL ONE (18:59)
[2019-02-02] MEDS ORDERED: DEXAMETHASONE SOD PHOS INJ 4 MG/ML VIAL ONE (18:59)
[2019-02-02] MEDS ORDERED: ONDANSETRON HCL INJ 2MG/ML 2ML 2 MG/ML VIAL ONE (18:59)
[2019-02-02] MEDS ORDERED: SUCCINYLCHOLINE 200 MG/10 ML SYR ONE (18:59)
[2019-02-03] VITALS (8 sets, daily range): BP systolic 98–122; BP diastolic 52–59
[2019-02-03] MEDS: CEFOXITIN 1GM/ D5W 50ML 50 ML IV SCH ×4 (00:35→18:20)
[2019-02-03] MEDS: SODIUM CHLORIDE 0.9% 1000ML 1,000 ML IV SCH ×2 (03:57→14:30)
[2019-02-03 05:14] LABS: EOSINOPHILS # (AUTO) 0.1 (0.0-0.4); EOSINOPHILS % 1.9 % (0.0-6.0); HEMATOCRIT 36.7 % (34.2-44.1); HEMOGLOBIN 12.3 g/dL (12.0-16.0); LYMPHOCYTES # (AUTO) 0.7 (1.0-3.2); LYMPHOCYTES % 9.6 % (18.0-39.1); MEAN CORPUSCULAR HEMOGLOBIN 30.3 pg (28-32); MEAN CORPUSCULAR HGB CONC 33.5 g/dL (31-35); MEAN CORPUSCULAR VOLUME 90.4 fL (81-99); MONOCYTES # (AUTO) 0.4 (0.2-0.8); MONOCYTES % 4.9 % (4.4-11.3); NEUTROPHILS % 83.3 % (38.7-80.0); PLATELET COUNT 90 x10e3/uL (140-360); RED BLOOD COUNT 4.06 x10e6/uL (3.6-5.1); RED CELL DISTRIBUTION WIDTH 13.4 % (11.7-14.4)
[2019-02-03 05:36] LABS: ANION GAP 8.8 mmol/L (8-16); BLOOD UREA NITROGEN 13 mg/dL (7-26); BUN/CREATININE RATIO 16 (6-25); CALCIUM 8.2 mg/dL (8.4-10.2); CARBON DIOXIDE 27 mmol/L (22-29); CHLORIDE 107 mmol/L (98-107); CREATININE, SERUM 0.79 mg/dL (0.57-1.11); EST GLOMERULAR FILTRATION RATE > 60 ML/MIN (60-); GLUCOSE 138 mg/dL (74-118); POTASSIUM 3.8 mmol/L (3.5-5.1); SODIUM 139 mmol/L (136-145)
[2019-02-03] MEDS: ONDANSETRON HCL INJ 2MG/ML 2ML 2 MG/ML VIAL IV PRN (06:37)
[2019-02-03] MEDS: MORPHINE SULFATE INJ 4 MG/ML INJ 1ML IV PRN (06:37)
[2019-02-03] MEDS ORDERED: DEXMEDETOMIDINE 200MCG/NS 50ML 0 ML IV ONE (08:22)
--- NOTE | 2019-02-03 08:30 | NUR ---
Per MD order patient may have clear liquids now, however NG tube is still in R nare. Surgeon paged for clarification. MD gave orders to remove NG tube. NG tube removed. Midline surgical incision dressing CDI. Patient to be transferred to [facility]. Report given to Beth HOOPER.
[2019-02-03] MEDS: GENVOYA PO SCH (09:00)
[2019-02-03] MEDS ORDERED: METOPROLOL SUCC25 MG (09:43)
[2019-02-03] MEDS ORDERED: CIPRO500 MG PO (09:43)
--- NOTE | 2019-02-03 14:15 | NUR ---
PT RECEIVED FROM [facility]. AAOX3. PT FAMILY AT BEDSIDE. CALL LIGHT WITH IN EASY REACH. INSTRUCTED PT TO USE CALL LIGHT FOR ANY NEEDS. BED IS LOCKED. PT DENIES NEEDS AT THIS TIME.
--- NOTE | 2019-02-03 17:00 | NUR ---
HERNANDEZ REMOVED PER THE ORDER. 200 ML IN THE BAG. VOID DUE AT 2300. PT DENIED FURTHER NEEDS.
--- NOTE | 2019-02-03 18:46 | Progress Note ---
DATE: CHIEF COMPLAINT: Status post small bowel obstruction and repair. No nausea or vomiting. REVIEW OF SYSTEMS: GENERAL: Extubated and feeling well. HEENT: No neck pain or mouth sores. LUNGS: No shortness of breath. CARDIOVASCULAR: No chest pain or palpitation. ABDOMEN: Soft, but tender to touch at mid abdomen incision site. NEUROLOGY: Alert and oriented. PHYSICAL EXAMINATION: VITAL SIGNS: Temperature 96.1, pulse is 67, blood pressure is 98/55, respirations 20, O2 sats are 99% on 2 L of oxygen via nasal cannula. LABORATORY DATA: Please see laboratory review. WBC 7.2, hemoglobin 12.3. Sodium 139, potassium 3.8. Platelets 90. IMPRESSION: 1. Small bowel obstruction, status post repair. 2. Atrial fibrillation, now normal sinus rhythm. 3. Hypertension and coronary artery disease. 4. History of human immunodeficiency virus and hepatitis C. PLAN: The patient had her NG tube removed, and started on clear liquid diet, she is tolerating diet well. We will discontinue Jorge catheter and encourage her to ambulate. Anticipate discharge once cleared by surgical team. Dictated by ALEXA Lenz Shyching Robby Chin MD MY/MODL /[id number]
--- NOTE | 2019-02-03 19:00 | NUR ---
BEDSIDE SHIFT REPORT GIVEN TO THE ENVIRONMENTAL SERVICES DIRECTOR RN. PT DENIED FURTHER NEEDS.
[2019-02-04] VITALS (9 sets, daily range): BP systolic 106–140; BP diastolic 53–73
[2019-02-04] MEDS: CEFOXITIN 1GM/ D5W 50ML 50 ML IV SCH ×5 (00:24→23:25)
[2019-02-04] MEDS: SODIUM CHLORIDE 0.9% 1000ML 1,000 ML IV SCH ×2 (02:12→11:05)
[2019-02-04 05:06] LABS: BASOPHILS % 0.1 % (0.0-1.0); HEMATOCRIT 36.1 % (34.2-44.1); HEMOGLOBIN 11.9 g/dL (12.0-16.0); LYMPHOCYTES % 11.5 % (18.0-39.1); MEAN CORPUSCULAR HEMOGLOBIN 30.5 pg (28-32); MEAN CORPUSCULAR VOLUME 92.6 fL (81-99); MONOCYTES # (AUTO) 0.6 (0.2-0.8); MONOCYTES % 6.6 % (4.4-11.3); NEUTROPHILS # (AUTO) 7.1 (2.1-6.9); NEUTROPHILS % 80.9 % (38.7-80.0); PLATELET COUNT 87 x10e3/uL (140-360); RED CELL DISTRIBUTION WIDTH 13.7 % (11.7-14.4)
[2019-02-04 05:35] LABS: ANION GAP 12.5 mmol/L (8-16); BLOOD UREA NITROGEN 13 mg/dL (7-26); BUN/CREATININE RATIO 16 (6-25); CALCIUM 8.1 mg/dL (8.4-10.2); CARBON DIOXIDE 23 mmol/L (22-29); CHLORIDE 107 mmol/L (98-107); CREATININE, SERUM 0.81 mg/dL (0.57-1.11); EST GLOMERULAR FILTRATION RATE > 60 ML/MIN (60-); GLUCOSE 109 mg/dL (74-118); POTASSIUM 3.5 mmol/L (3.5-5.1); SODIUM 139 mmol/L (136-145)
--- NOTE | 2019-02-04 07:00 | NUR ---
BEDSIDE SHIFT REPORT RECEIVED FROM THE TEAM LEAD RN. PT DENIES NEEDS AT THIS TIME.
[2019-02-04] MEDS: GENVOYA PO SCH (09:17)
[2019-02-04] MEDS: METOPROLOL SUCCINATE 25 MG TAB XL PO SCH (09:23)
--- NOTE | 2019-02-04 10:30 | NUR ---
PAGED DR. CRISTOBAL REGARDING ADVANCING THE DIET. NO NEW ORDERS RECEIVED.
--- NOTE | 2019-02-04 10:50 | NUR ---
ADVANCE DIET TOLERATED PER DR. CRISTOBAL.
--- NOTE | 2019-02-04 16:00 | NUR ---
ADVANCE DIET PER DR. CRISTOBAL. PT IS ON GI SOFT DIET.
--- NOTE | 2019-02-04 16:02 | Progress Note ---
DATE: 02/04/2019 CONSULTANTS: 1. Dr. Kiko Luo for Surgery. 2. Dr. Gopi Watson for cardiovascular. CHIEF COMPLAINT: Abdomen pain due to partial small bowel obstruction. SUBJECTIVE: Abdominal pain is improved. MEDICATIONS: See MAR. REVIEW OF SYSTEMS: Abdominal pain with no nausea or vomiting. All other systems are reviewed and are negative. OBJECTIVE: VITAL SIGNS: Temperature is 96.0, pulse 61, blood pressure 133/63, respirations 14, and SpO2 is 98%. GENERAL: Alert, awake, and oriented x3. NECK: Supple. LUNGS: Clear to auscultation. CARDIOVASCULAR: Normal rate and rhythm. ABDOMEN: There is an ileostomy bag in place. Mid abdomen incision dressing is intact, mild tenderness with palpation. EXTREMITIES: Active range of motion. No edema noted. NEUROLOGY: Alert, awake, and oriented x3. IMPRESSION: 1. Status post partial small bowel obstruction repair. 2. History of ileostomy. 3. Hypertension and coronary artery disease. 4. History of human immunodeficiency virus and hepatitis C. PLAN: Ng tube was removed. She tolerated clear liquids. We will advance diet as tolerated. We will discontinue IV fluids as she is tolerating her diet. We will treat her nausea and pain as needed. Anticipate discharge tomorrow home if tolerates diet and cleared by Dr. Hoover. Dictated by ALEXA Lenz Linn Chin MD MY/MODL /[id number]
--- NOTE | 2019-02-04 18:15 | NUR ---
PT IS ON GI SOFT DIET AND TOLERATING FOOD. STOP FLUIDS PER MARYCARMEN MACHADO.
--- NOTE | 2019-02-04 19:00 | NUR ---
BEDSIDE SHIFT REPORT GIVEN TO THE METALLURGICAL ANALYST RN. PT DENIED FURTHER NEEDS.
[2019-02-05 04:00] VITALS: BP 115/58
[2019-02-05 07:51] VITALS: BP 134/62
[2019-02-05] MEDS: METOPROLOL SUCCINATE 25 MG TAB XL PO SCH (08:41)
[2019-02-05] MEDS: GENVOYA PO SCH (08:41)
[2019-02-05 08:42] VITALS: BP 134/62
[2019-02-05 11:29] VITALS: BP 128/60
[2019-02-05] MEDS ORDERED: SODIUM CHLORIDE 0.9% 250ML 250 ML ONE (11:43)
[2019-02-05] MEDS: CEFOXITIN 1GM/ D5W 50ML 50 ML IV SCH (12:00)
--- NOTE | 2019-02-05 12:50 | NUR ---
EDUCATED ABOUT IMM, SIGNED, FILED IN CHART, WITH COPY LEFT WITH FAMILY AT BEDSIDE
[2019-02-05] MEDS ORDERED: TYLENOL WITH C1 EACH PO (14:03)
--- NOTE | 2019-02-05 14:50 | NUR ---
WOund care education provided. Voiced understanding and returns demonstration. [place] well approximated.
--- NOTE | 2019-02-05 15:00 | NUR ---
Left FA IV discontinued. No signs of infiltration noted. 2x2 gauze and tape placed. Taken via wheelchair by PCT to personal car. Accompanied by friend. AAOX4 to time, person, place, situation. Respirations even and unlabored. Dressing to mid abdomen clean, dry, and intact. Discharge instructions, rx, and all personal belongings taken with patient.
--- NOTE | 2019-02-06 06:01 | Discharge Summary ---
CONSULTING PHYSICIANS: Dr. Valerio Hoover with Surgery and Dr. Gopi Watson with Cardiology. PRIMARY CARE PHYSICIAN: Dr. Claude Hay. CHIEF COMPLAINT: Abdominal pain due to small bowel obstruction. FINAL DIAGNOSES: 1. Small bowel obstruction. 2. Atrial fibrillation, now normal sinus rhythm. 3. Hypertension. 4. History of human immunodeficiency virus and hepatitis C. PROCEDURES: She underwent small bowel obstruction repair. HISTORY: Per H and P. HOSPITAL COURSE: The patient was admitted with increased abdominal pain and vomiting. She initially had recent ileostomy bag in place. Imaging showed that she had a partial small bowel obstruction, when they were inserting NG tube, she was noted to have atrial fibrillation. So, Cardiology was consulted. She was given metoprolol as needed, but converted to normal sinus rhythm right away with no further intervention. She underwent a small bowel obstruction repair by Dr. Hoover. She was started on clear liquids and advanced as tolerated. Today, she is tolerating regular diet and passing gas and stool in the bag. Pain is controlled. PHYSICAL EXAMINATION: Vital signs: Temperature 96.6, pulse is 56, blood pressure is 134/62, respirations 20, SpO2 is 94. GENERAL: She is alert, awake, oriented x3. NECK: Supple. LUNGS: Clear to auscultation. No shortness of breath. CARDIOVASCULAR: Normal rate and rhythm. ABDOMEN: Soft and mild tenderness in the midline at the incision site. EXTREMITIES: Active range of motion with no edema. NEUROLOGIC: Alert, awake, oriented x3. CONDITION AT THE TIME OF DISCHARGE: Improved and stable. Tolerating diet. Afebrile. DISCHARGE MEDICATIONS: See medication reconciliation list. FOLLOWUP: Follow up in [address] Hoover. Follow up with Dr. Claude Hay in 1 to 2 weeks. Follow up with Dr. Rosenthal for Infectious Disease per appointment every 3 months. Dictated by ALEXA Lenz Linn Chin MD MY/MODL /[id number] cc: Claude Hay
== END 2019-02-05 15:00 | disposition home or self-care (01) | DRG 330 ==
LOC: ER 17:48 → ERHOLD 21:47 → ICU 02-02 00:47 → IMCU 02-03 08:37 → MED/SURG2 02-03 14:16
PROVIDERS: ADMIT Internal Medicine; ATTEND Internal Medicine
PROC: 0D1B0Z4 Bypass Ileum to Cutaneous, Open Approach (ICD-10-PCS; principal; 2019-02-01)
PROC: 0WQF0ZZ Repair Abdominal Wall, Open Approach (ICD-10-PCS; 2019-02-01)
DX: K43.3 Parastomal hernia with obstruction, without gangrene (principal); B20 Human immunodeficiency virus [HIV] disease; K56.51 Intestinal adhesions [bands], with partial obstruction; I48.91 Unspecified atrial fibrillation; I10 Essential (primary) hypertension; B19.20 Unspecified viral hepatitis C without hepatic coma; I25.10 Atherosclerotic heart disease of native coronary artery without angina pectoris; T85.848A Pain due to other internal prosthetic devices, implants and grafts, initial encounter; K42.0 Umbilical hernia with obstruction, without gangrene; K94.10 Enterostomy complication, unspecified
CPT/HCPCS: 36415; 74177; 80048; 80053; 81001; 82550; 82553; 84484; 85025; 93005; 93306; 99284; J0694; J1100; J2001; J2270; J2370; J2405; J3010; J7030; J7050; Q9967

== ENCOUNTER → 2021-09-13 | Outpatient (CLI) | payer MEDICARE ==
[~2021-09-13] MED LIST changes: +ASPIRIN EC81 MG PO; +CIPRO500 MG PO; +LOPRESSOR25 MG PO; +METOPROLOL SUCC25 MG; +TYLENOL WITH C1 EACH PO
== END ==
LOC: DX 08:32
PROVIDERS: ATTEND Family Medicine
DX: K21.9 Gastro-esophageal reflux disease without esophagitis (principal)
CPT/HCPCS: 74246

== ENCOUNTER 2022-10-12 19:04 | Emergency (ER) | payer MEDICARE ==
[~2022-10-12] VITALS: Ht 157.5 cm; Wt 67.1 kg
[2022-10-12 19:47] LABS: BASOPHILS % 0.3 % (0.0-1.0); EOSINOPHILS # (AUTO) 0.1 (0.0-0.4); EOSINOPHILS % 1.1 % (0.0-6.0); HEMATOCRIT 29.8 % (34.2-44.1); HEMOGLOBIN 10.2 g/dL (12.0-16.0); LYMPHOCYTES # (AUTO) 1.3 (1.0-3.2); MEAN CORPUSCULAR HEMOGLOBIN 32.7 pg (28-32); MEAN CORPUSCULAR HGB CONC 34.2 g/dL (31-35); MEAN CORPUSCULAR VOLUME 95.5 fL (81-99); MONOCYTES # (AUTO) 0.6 (0.2-0.8); MONOCYTES % 9.6 % (4.4-11.3); NEUTROPHILS # (AUTO) 4.6 (2.1-6.9); NEUTROPHILS % 68.7 % (38.7-80.0); PLATELET COUNT 96 x10e3/uL (140-360); RED BLOOD COUNT 3.12 x10e6/uL (3.6-5.1)
[2022-10-12 20:03] LABS: ALBUMIN/GLOBULIN RATIO 1.1 (0.8-2.0); ANION GAP 13.6 mmol/L (8-16); CREATININE, SERUM 1.38 mg/dL (0.57-1.11); POTASSIUM 4.6 mmol/L (3.5-5.1)
[2022-10-12 20:04] LABS: CALCIUM 9.2 mg/dL (8.4-10.2)
[2022-10-12 21:01] LABS: CLARITY,URINE CLOUDY (CLEAR); COLOR,URINE YELLOW (YELLOW); LEUKOCYTE ESTERASE ,URINE 1+ (NEGATIVE); NITRITE,URINE NEGATIVE (NEGATIVE); PROTEIN,URINE DIPSTICK NEGATIVE (NEGATIVE)
[2022-10-12 21:02] LABS: KETONES,URINE NEGATIVE (NEGATIVE); URINE UROBILINOGEN 0.2 mg/dL (0.2 - 1)
[2022-10-12 21:07] LABS: BACTERIA,URINE MANY /HPF; EPITHELIAL CELLS,URINE FEW /LPF; RBC,URINE 21-50 /HPF (0-5); RENAL EPITHELIAL CELLS,URINE FEW; TRANSITIONAL EPI CELLS,URINE FEW; WBC,URINE (MAN) >50 /HPF (0-5)
[2022-10-12] MEDS ORDERED: CEFTRIAXONE 1 GM VIAL ONE (21:16)
[2022-10-12] MEDS ORDERED: CEFDINIR300 MG PO (21:16)
[2022-10-12 21:50] VITALS: BP 113/62
== END 2022-10-12 21:52 | disposition home or self-care (01) ==
LOC: ER 19:09
DX: R53.83 Other fatigue (principal); R42 Dizziness and giddiness; N39.0 Urinary tract infection, site not specified; I10 Essential (primary) hypertension; I48.91 Unspecified atrial fibrillation; B19.20 Unspecified viral hepatitis C without hepatic coma; I25.10 Atherosclerotic heart disease of native coronary artery without angina pectoris; B20 Human immunodeficiency virus [HIV] disease; Z93.3 Colostomy status
CPT/HCPCS: 36415; 71045; 80053; 81001; 83880; 85025; 87086; 87186; 99284; J0696